=== PATIENT | male | born 1995 | race Caucasian/White ===

== ENCOUNTER 2021-11-17 10:59 | Emergency (ER) | payer OTHER ==
[~2021-11-17] VITALS: Ht 182.9 cm; Wt 82.5 kg
[2021-11-17] MEDS ORDERED: ZANTAC-360 (FAM20 MG PO (11:22)
[2021-11-17] MEDS ORDERED: HYDROXYZINE HCL25 MG PO (11:24)
== END 2021-11-17 13:05 | disposition home or self-care (01) ==
LOC: ED 10:59
DX: S16.1XXA Strain of muscle, fascia and tendon at neck level, initial encounter (principal); F07.81 Postconcussional syndrome; V49.9XXA Car occupant (driver) (passenger) injured in unspecified traffic accident, initial encounter; Z88.5 Allergy status to narcotic agent; Z79.899 Other long term (current) drug therapy
CPT/HCPCS: 70450; 72125; 99284-25

== ENCOUNTER 2023-07-03 04:51 | Emergency (ER) | payer BC ==
[~2023-07-03] VITALS: Ht 182.9 cm; Wt 82.5 kg
--- OUTSIDE RECORDS SUMMARY | ~2023-07-03 | XMS | Continuity of Care Document ---
Demographics + + + | Address | [address] | | | [place] [address] | + + + | Preferred Language | Unknown | + + + | Marital Status | Never | + + + | Zoroastrianism Affiliation | Unknown | + + + | Race | White | + + + | Ethnic Group | Unknown | + + + Author + + + | Author | [facility] | + + + | Organization | [facility] | + + + | Address | [address] | | | [place] [address] | + + + | Phone | | + + + Care Team Providers + + + + | Care Elementary Math Tutor Name | Role | Phone | + + + + Unavailable | Unavailable | + + + + Allergies No information. Encounters No information. Functional Status No information. Immunizations No information. Medications No information. Problems + + + + | date | description | facility | + + + + | 2023-02-26 07:29 | PAIN IN LEFT SHOULDER | [facility] | + + + + Procedures No information. Results/Labs No information. Social History No information. Vital Signs No information."
--- OUTSIDE RECORDS SUMMARY | ~2023-07-03 | XMS | Continuity of Care Document ---
Demographics + + + | Address | [address] | | | [place] [address] | + + + | Preferred Language | Unknown | + + + | Marital Status | Never | + + + | Jainism Affiliation | Unknown | + + + | Race | White | + + + | Ethnic Group | Unknown | + + + Author + + + | Author | [facility] | + + + | Organization | [facility] | + + + | Address | [address] | | | [place] [address] | + + + | Phone | | + + + Care Team Providers + + + + | Care Fuel System Maintenance Supervisor Name | Role | Phone | + [...]
[~2023-07-03 04:51] MED LIST: HYDROXYZINE HCL25 MG PO; ZANTAC-360 (FAM20 MG PO
[2023-07-03 05:57] LABS: INFLUENZA B NAA NEGATIVE (NEGATIVE); RESPIRATORY SYNCYTIAL VIR NAA NEGATIVE (NEGATIVE)
[2023-07-03 06:35] VITALS: BP 122/77
== END 2023-07-03 06:37 | disposition home or self-care (01) ==
LOC: ED 04:51
PROVIDERS: Family Medicine
DX: U07.1 COVID-19 (principal); K21.9 Gastro-esophageal reflux disease without esophagitis; J45.909 Unspecified asthma, uncomplicated; Z88.5 Allergy status to narcotic agent; Z79.899 Other long term (current) drug therapy
CPT/HCPCS: 87502; 87651; 96372; 99283; A9270; C9803; J1885; U0002